=== PATIENT | male | born 1980 | race Caucasian/White ===

== ENCOUNTER 2024-10-04 19:53 | Emergency (ER) | payer MEDICARE ==
[~2024-10-04] VITALS: Ht 185.4 cm; Wt 126.1 kg
[2024-10-04 20:45] LABS: BASO # 0.1 10^3/uL (0.0-0.2); BASO % 0.9 % (0.0-1.0); EOS # 0.3 10^3/uL (0.0-0.5); EOS % 3.9 % (0.0-3.0); LYMPH # 1.5 10^3/uL (1.5-5.0); LYMPH % 17.2 % (24.0-44.0); MONO # 0.7 10^3/uL (0.0-0.8); MONO % 7.6 % (2.0-8.0); NEUTROPHILS # 6.0 10^3/uL (1.5-8.5); NEUTROPHILS % 69.9 % (36.0-66.0); PLATELET COUNT, AUTOMATED 247 10^3/uL (150-450)
[2024-10-04 20:54] LABS: ERYTHROCYTE SEDIMENTATION RATE 27 mm/hr (0-15)
[2024-10-04 21:11] LABS: C REACTIVE PROTEIN QUANTITATIV 2.62 MG/DL (<1.0)
[2024-10-04 21:32] LABS: ALT/SGPT 14.0 U/L (7.0-40); AST/SGOT 12.0 U/L (<34); CALCIUM LEVEL 9.1 MG/DL (8.5-10.1); CARBON DIOXIDE LEVEL 29.0 MMOL/L (20-31); CHLORIDE LEVEL 91.0 MMOL/L (98-107); CREATININE FOR GFR 5.15 MG/DL (0.70-1.30); GLOMERULAR FILTRATION RATE 13.3 (>60); POTASSIUM SERUM 4.5 MMOL/L (3.5-5.1); SODIUM LEVEL 134.0 MMOL/L (136-145)
[2024-10-04] MEDS ORDERED: DOXY-441 PO (21:43)
[2024-10-04] MEDS: HumuLIN R (REGULAR) INSULIN (NovoLIN R) **100 U/ML** PER UNIT IV ONE ×2 (23:02→23:56)
[2024-10-04] MEDS: MORPHINE 2 MG/ML 1 ML VIAL IV PRN (23:55)
[2024-10-05 00:33] VITALS: TEMP 98
[2024-10-05 00:45] VITALS: BP 170/75; O2SAT 98
== END 2024-10-05 00:59 | disposition home or self-care (01) ==
LOC: M ED 19:53
DX: E11.621 Type 2 diabetes mellitus with foot ulcer (principal); M86.171 Other acute osteomyelitis, right ankle and foot; N18.6 End stage renal disease; Z88.0 Allergy status to penicillin; Z88.2 Allergy status to sulfonamides; Z79.2 Long term (current) use of antibiotics
CPT/HCPCS: 73630; 80053; 83605; 84145; 85025; 85652; 86140; 93041; 96374; 96375; 96376; 99284; J1815; J2765

== ENCOUNTER → 2024-12-26 | Outpatient (REF) | payer MEDICARE, MEDICAID ==
[~2024-12-26] MED LIST: DOXY-441 PO
== END ==
LOC: M LAB REF 17:22
DX: E11.65 Type 2 diabetes mellitus with hyperglycemia (principal)